=== PATIENT | male | born 1965 | race Caucasian/White ===

== ENCOUNTER 2017-07-23 20:57 | Emergency (ER) | payer BC, OTHER ==
--- NOTE | 2017-07-23 21:15 | UC ---
Laceration HPI - HPI Summary HPI Summary: 52 y/o male presents to the urgent care c/o laceration of his LF index finger about 20:45pm with a broken drinking glass. Pt states bleeding stopped with pressure. Pain is 2/10. He can flex finger w/o any difficulty, denies numbness and tingling of the finger. Pt doesn't recall when was the last Tetanus vaccine. Pt denies fever, SOB, chest pain, N/V/D - History Of Current Complaint Chief Complaint: UCLaceration Stated Complaint: FINGER LAC Time Seen by Provider: 07/23/17 21:10 Hx Obtained From: Patient Laceration Location: Finger - LF index finger with laceration Mechanism Of Injury: Sharp Trauma - laceration with a broken glass Onset/Duration: Sudden Onset, Lasting Hours - 1hr ago Severity: Mild Pain Intensity: 3 Pain Scale Used: 0-10 Numeric Aggravating Factors: Movement Related History: Dominant Hand Right - Allergies/Home Medications Allergies/Adverse Reactions: Allergies Allergy/AdvReac Type Severity Reaction Status Date / Time No Known Allergies Allergy Verified 07/23/17 21:05 PMH/Surg Hx/FS Hx/Imm Hx Previously Healthy: Yes Other Respiratory History: sleep apnea - Surgical History Surgical History: Yes Surgery Procedure, Year, and Place: SEPTOPLASTY, EYE SURGERY - Family History Known Family History: Positive: Hypertension Family History: Breast CA - Social History Occupation: Employed Full-time Lives: With Family Alcohol Use: Occasionally Substance Use Type: None Smoking Status (MU): Never Smoked Tobacco - Immunization History Most Recent Influenza Vaccination: Most Recent Tetanus Shot: UNSURE Review of Systems Constitutional: Negative Skin: Other - laceration to the LF index finger Eyes: Negative ENT: Negative Respiratory: Negative Cardiovascular: Negative Gastrointestinal: Negative Genitourinary: Negative Motor: Negative Neurovascular: Negative Musculoskeletal: Negative Neurological: Negative Psychological: Negative Is Patient Immunocompromised?: No All Other Systems Reviewed And Are Negative: Yes Physical Exam Triage Information Reviewed: Yes Appearance: Well-Appearing, No Pain Distress, Well-Nourished, Thin Vital Signs: Initial Vital Signs Temp 99.1 F 07/23/17 21:02 Pulse 79 07/23/17 21:02 Resp 16 07/23/17 21:02 BP 134/81 07/23/17 21:02 Pulse Ox 96 07/23/17 21:02 Vital Signs Reviewed: Yes Eye Exam: Normal Eyes: Positive: Conjunctiva Clear - PERRLA, EOMI ENT Exam: Normal ENT: Positive: Normal ENT inspection, Hearing grossly normal, Pharynx normal, TMs normal Dental Exam: Normal Neck exam: Normal Neck: Positive: Supple, Nontender, No Lymphadenopathy Respiratory Exam: Normal Respiratory: Positive: Chest non-tender, Lungs clear, Normal breath sounds Cardiovascular Exam: Normal Cardiovascular: Positive: RRR, No Murmur, Pulses Normal Abdominal Exam: Normal Abdomen Description: Positive: Nontender, No Organomegaly, Soft. Negative: CVA Tenderness (R), CVA Tenderness (L) Bowel Sounds: Positive: Present Musculoskeletal Exam: Normal Musculoskeletal: Positive: Strength Intact, ROM Intact, No Edema Neurological Exam: Normal Psychological Exam: Normal Skin: Positive: significant lesion(s) - LF # 2 phalanx with a superficial laceration just above the PIPJ, about 1 cm in size, mild tenderness over palpation, FROM of the finger and hand. Positive sensation, capillary refill and pulses WNL. Laceration Repair - Laceration Repair 1 Description: Linear Laceration Size After Repair: Length (cm) - 1 cm Modified For Repair: No Type Injection: Local Anesthesia Used: 1.0% Lido - 2ml Cleansing Completed Via Routine Prep: Yes Irrigation With Pressure Irrigation Device: Yes Closure Material: Sutures - 3 sutures of 5.0 nylon Closure Method: Single Layer Suture Of: Skin Suture Type: Nylon Laceration Course/Dx - Course/Dx Course Of Treatment: 52 y/o male presents to the urgent care c/o laceration of his LF index finger about 20:45pm with a broken drinking glass. Pt states bleeding stopped with pressure. Pain is 2/10. He can flex finger w/o any difficulty, denies numbness and tingling of the finger. Pt doesn't recall when was the last Tetanus vaccine. Pt denies fever, SOB, chest pain, N/V/D Hx obtained. Tdap ordered. Nurse applied IM inj. Pt tolerated well IM injection.LACERATION PROCEDURE NOTE: . Copious irrigation was done with saline and the wound explored. There was no FB or deep structure injury noted. Timeout performed with the nurse Crisostomo. The procedure was explained and consent obtained. Lidocaine 1% ordered to topically anesthetize the laceration. Good anesthesia obtained with 2mL of 1% Lidocaine, Iodine applied around wound 3X. Sterile drape and prep were done There were 3 of sutures placed with 5.0 Nylon . The length of the wound after closure was 1.0 cm. No debridement done. Wound was covered with bacitracin and sterile nonadherent dressing place by nurse. The Pt tolerated the procedure well without adverse effects. Pt neurovascular intact. 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 Otherwise f/u suture removal in 10-14 days. PT understood and agreed. Pt left the clinic ambualating A&OX3 - Differential Dx - Laceration/Wound Differental Diagnoses: Abrasion, Laceration, Puncture Wound, Tendon Laceration Provider Diagnoses: 1- Left # 2 phalanx laceration repair Discharge - Discharge Plan Condition: Stable Disposition: HOME Patient Education Materials: Care For Your Stitches (ED), Laceration (ED) Referrals: Gerard Han MD [Primary Care Provider] - 7 Days Additional Instructions: 1- Keep wound clean and dry and avoid excessive movement w/ your finger. 2- F/u suture removal in 10 days w/ your PCP or here at the urgent care. 3-Take Ibuprofen or Tylenol PO q6-8hrs prn for pain or swelling. 4- If you develop fever or redness around your finger return to the urgent care for f/u with your PCP for further management.
[2017-07-23] MEDS ORDERED: Lidocaine 1% MPF* 2 ML VIAL INJ ONE (21:16)
[2017-07-23] MEDS ORDERED: Tetan/Diph/Pertus SYR(Tdap)* 0.5 ML SYR(BOOSTRIX) use SYR IM ONE (21:19)
[2017-07-23 21:21] VITALS: BP 134/81
== END 2017-07-23 22:03 | disposition home or self-care (01) ==
LOC: UCEAST 20:57
DX: S61.211A Laceration without foreign body of left index finger without damage to nail, initial encounter (principal); W25.XXXA Contact with sharp glass, initial encounter; Y93.9 Activity, unspecified; Y92.9 Unspecified place or not applicable; Z23 Encounter for immunization
CPT/HCPCS: 12001; 90471; 90715; 99201; G0463